=== PATIENT | female | born 1955 | race Caucasian/White ===

== ENCOUNTER 2024-03-07 06:57 | Outpatient (RCR) | payer MEDICARE, OTHER, SELFPAY | END 2024-03-07 13:40 | disposition home or self-care (01) | LOC: RPT 06:57 | PROVIDERS: ATTENDING PHYSICIAN Specialist; FAMILY PHYSICIAN Internal Medicine | DX: M75.41 Impingement syndrome of right shoulder (principal); M19.011 Primary osteoarthritis, right shoulder; Z73.6 Limitation of activities due to disability | CPT/HCPCS: 97110; 97112; 97162 ==

== ENCOUNTER → 2024-07-19 15:00 | Outpatient (REF) | payer MEDICARE, OTHER, SELFPAY | LOC: WDC 15:00 | PROVIDERS: ATTENDING PHYSICIAN Obstetrics & Gynecology Gynecology; FAMILY PHYSICIAN Internal Medicine | DX: Z12.31 Encounter for screening mammogram for malignant neoplasm of breast (principal) | CPT/HCPCS: 77063; 77067 ==

== ENCOUNTER → 2024-07-24 08:58 | Outpatient (REF) | payer MEDICARE, OTHER, SELFPAY | LOC: WDC 08:58 | PROVIDERS: ATTENDING PHYSICIAN Obstetrics & Gynecology Gynecology; FAMILY PHYSICIAN Internal Medicine | DX: R92.8 Other abnormal and inconclusive findings on diagnostic imaging of breast (principal) | CPT/HCPCS: 76642 ==

== ENCOUNTER → 2024-07-30 07:38 | Outpatient (REF) | payer MEDICARE, OTHER, SELFPAY ==
--- NOTE | 2024-07-30 09:23 | OID.BR.INTR ---
[facility] Breast Navigator - Initial
- -
Date of Contact: 07/30/24
Met with patient. Patient given written information on navigator services available at [facility]. Will follow up as needed per protocol.
== END ==
LOC: WDC 07:38
PROVIDERS: ATTENDING PHYSICIAN Obstetrics & Gynecology Gynecology; FAMILY PHYSICIAN Internal Medicine
DX: N63.11 Unspecified lump in the right breast, upper outer quadrant (principal)
CPT/HCPCS: 88305; 19081; 76098; 88341; 88342; 88360; A4648

== ENCOUNTER → 2024-08-28 08:57 | Outpatient (REF) | payer MEDICARE, OTHER, SELFPAY | LOC: WDC 08:57 | PROVIDERS: ATTENDING PHYSICIAN Surgery | DX: C50.411 Malignant neoplasm of upper-outer quadrant of right female breast (principal) | CPT/HCPCS: 38792; 76942; A9541 ==

== ENCOUNTER 2024-08-29 06:14 | Inpatient (IN) | payer MEDICARE, OTHER, SELFPAY ==
[2024-08-24 09:21] VITALS: BMI 25.1
[2024-08-24 11:06] LABS: Hematocrit 36.1 % (37.0-47.0); Hemoglobin 12.2 g/dL (12.0-16.0); Mean Corp Hgb Conc. 33.8 g/dL (33.0-37.0); Mean Corpuscular Hgb 30.6 pg (27.0-31.0); Mean Corpuscular Volume 90.5 fL (81.0-99.0); Mean Platelet Volume 10.7 fL (7.4-10.4); Platelet Count 246 10^3/uL (130-400); Red Blood Cell Count 3.99 10^6/uL (4.20-5.40); Red Cell Dist. Width 14.3 % (11.5-14.5); White Blood Cell Count 3.9 10^3/uL (4.8-10.8)
[2024-08-24 11:23] LABS: Absolute Neutrophils -Man Diff 1.5 10^3/uL (1.4-6.5); Atypical Lymphocytes 5 %; Band Neutrophils 1 % (0-3); Eosinophils 1 % (0-6); Lymphocytes 42 % (20-51); Monocytes 10 % (2-9); Normal RBC Morphology Yes; Platelets Checked Yes; Segmented Neutrophils 40 % (42-75)
[2024-08-24 11:24] LABS: Total Cells Counted 100
[2024-08-24 11:37] LABS: ALT (SGPT) 29 U/L (0-35); AST (SGOT) 26 U/L (14-36); Alkaline Phosphatase 76 U/L (38-126); Blood Urea Nitrogen 16 mg/dl (7-17); Calcium 9.5 mg/dl (8.4-10.2); Carbon Dioxide 28 mmol/L (22-30); Chloride 105 mmol/L (98-107); Estimated Creatinine Clearance 70 ml/min; Glucose 92 mg/dl (70-99); Potassium 4.3 mmol/L (3.5-5.1); Sodium 143 mmol/L (135-145); Total Bilirubin 0.3 mg/dl (0.2-1.3); Total Protein 6.6 g/dl (6.3-8.2); eGFR > 60.00
[2024-08-24 11:40] LABS: Prealbumin (Transthyretin) 21.2 mg/dl (17.6-36.0)
[2024-08-24 11:55] LABS: Vitamin D, 25-OH*** 60.7 ng/mL (30-80)
[2024-08-29] VITALS (25 sets, daily range): BP systolic 5–151; BP diastolic 49–111; BMI 25.1; BMI 25.2
[2024-08-29] MEDS: TYLENOL 1000 MG PO ×3 (06:40→17:47)
[2024-08-29] MEDS: LOVENOX 40 MG SC (06:40)
[2024-08-29] MEDS: NORMOSOL-R/PLASMALYTE-A 1000 IV (06:46)
--- NOTE | 2024-08-29 07:04 | PTCARENOTE ---
OK per anesthesia to start the IV in the L arm with history of Mastectomy and lymph node removal x 2. Will monitor patient.
--- NOTE | 2024-08-29 07:36 | W.SUR.PREOP ---
Pre-Operative Surgical Note
-
I have examined this patient prior to the performance of the scheduled procedure.
The patient's condition is unchanged from the time of the current History and
Physical and the patient is able to undergo the scheduled procedure.
--- NOTE | 2024-08-29 10:18 | W.IMMPOSTOP ---
Surgical Immed Post Op Note
-
Primary Surgeon: Mo
Assisting Surgeon: None
Pre-op Diagnosis: Right breast ca
Post-op Diagnosis: Same
Procedure Performed: Right mastectomy and sentinel lymph node mapping and biopsy
Anesthesia Type: GET
Specimen / Cultures: Right breast sentinel nodes
Estimated Blood Loss: 20cc
Complications: None
Operative Findings: Neg frozen section on lymph nodes
Garland Node Bx Breast Cancer
Garland Node Bx Breast Cancer
Operation performed with curative intent: Yes
Tracer(s) to ID Garland Nodes in Non-Neoadjuvant setting: Radioactive Tracer
Tracer(s) to ID Sentinal Nodes in the Neoadjuvant Setting: N/A
All nodes at end of dye-filled Lymphatic Channel removed: No
All Significantly Radioactive Nodes were removed: Yes
All Palpably Suspicious Nodes were Removed: Yes
Bx Proven Pos Nodes Marked Prior to Chemo ID'd & Removed: N/A
--- NOTE | 2024-08-29 11:00 | W.IMMPOSTOP ---
Surgical Immed Post Op Note
-
Primary Surgeon: MARTINE White MD
Assisting Surgeon:
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
Post-op Diagnosis: Same
Procedure Performed: Right immediate breast reconstruction with tissue farm butcher, insertion of ADM, left revision of reconstructed breast with removal and replacement of saline texture implant for smooth silicone gel implant
Anesthesia Type: GA
Specimen / Cultures: Per Dr. Hassan
Estimated Blood Loss: 30cc
Complications: None
Operative Findings: As expected, 12cm farm butcher filled to 100cc
--- NOTE | 2024-08-29 11:03 | OR.RPT ---
Operative Report
Operative Report
Date of surgery: 08/29/2024
Surgeon: MARTINE White MD
Preoperative diagnosis: Breast cancer, history of breast cancer, History of surgically acquired absence of left breast
Postoperative diagnosis: Same
Procedure:
1. Removal of left breast implant
2. Extensive capsulotomies and pocket adjustment of left breast
3. Insertion of silicone gel breast implant left breast
4. Immediate breast reconstruction after mastectomy with tissue parts professional, right breast
5. Insertion of ADM mesh right breast
Complications: None
Anesthesia: General
Implants: Left Sientra cohesive gel breast implant, documented in chart; right breast tissue parts professional
EBL: 30 cc
Indications for procedure: Patient is a 68-year-old female with a history of a left-sided breast cancer status post skin sparing mastectomy via horizontal approach. She is implant-based reconstruction and this is associated with contour abnormality
malposition. The implant has been in for some time and she desires removal and replacement. She is also recently diagnosed with a right sided breast cancer for which she will undergo a right mastectomy. She is interested in immediate
reconstruction with a tissue parts professional on the right with a staged insertion of silicone gel breast implant for symmetry at a later date. We reviewed the risks of the procedure at length include the risk of implants including BII, KIRTI ALCL, rupture,
capsular contracture, infection, rippling and wrinkling. She understood these risks and desired to proceed. Additional risk of hematoma, seroma, infection and for reconstructive failure were reviewed. Consents were signed accordingly
Procedure in detail: The patient was identified preoperatively and the surgical site was confirmed to be the bilateral breast. On the left the prior scar was marked for excision. On the right a horizontal or transverse skin sparing mastectomy was
planned out. All questions were answered and consents were confirmed. Patient was taken back to the operating room placed supine on table. Anesthesia was induced and an LMA was placed. Timeout for patient safety was performed to confirm that
preoperative antibiotics had been administered and bilateral SCDs were in place. Procedure began with Suad Hassan on the right breast performing the skin sparing mastectomy. Her operative report will be dictated separately. I began on the left
side where I performed the revisions to the left breast reconstruction. 1% lidocaine with epinephrine was injected into the prior scar and the scar was excised just transversely. An oblique capsulotomy was then performed and the implant was
removed. It was noted to be textured. The capsule itself was thin without irregularity or thickening. The pocket was then inspected and was found that the implant pocket was largely displaced inferior to the pectoralis muscle. As such extensive
capsulotomies were performed as well as submuscular dissection in order to restore the breast implant pocket to a more anatomical place. Meticulous hemostasis was ensured and then a gel sizer was placed to determine the final implant size. After
determining the size, the pocket was irrigated with double antibiotic solution followed by dilute Betadine and the Implant was placed and no touch technique using a Hill funnel. the wound was then closed in 3 layers using 2-0 Vicryl deep to
close the capsule followed 4-0 Monocryl and 5-0 nylon. Once Suad had finished the right mastectomy, I moved to the right side and ensured meticulous hemostasis the pocket. It was determined that a partial submuscular parts professional reconstruction
would be performed. As such the pectoralis muscle was elevated off the chest wall using Bovie electrocautery. A mesh construct was then devised using core TIVA ADM to provide an inferolateral sling. Tissue parts professional was measured based on the base
width and this was opened and irrigated with antibiotic solution. The parts professional was partially inflated and inserted into the submuscular position and sutured to the chest wall. The mesh was also inset using 2-0 Vicryl's. The pectoralis muscle was
then advanced over the construct using a series of 0 and 2-0 Vicryl's. 2 drains were placed in the right breast and tunneled and's along subcutaneous tunnel. Pectoralis muscle blocks with Marcaine were performed prior to elevation. The wound was
then closed in layers using 3-0 and 4-0 Monocryl.
Patient tolerated the procedure well was performed out complication, all counts were correct at the end the case. She was extubated taken the PACU for further care.
[2024-08-29] MEDS: DILAUDID 0.25 MG IV (11:46)
[2024-08-29] MEDS: ANCEF 5 IV (16:59)
--- NOTE | 2024-08-29 17:30 | PTCARENOTE ---
Patient admitted from PACU. VSS. Patient sating 96% on RA. Patient had one episode of N/V. No further c/o. Patient oriented to floor. Call blunt at bedside.
[2024-08-29] MEDS: NEURONTIN 100 MG PO ×2 (17:47→21:59)
[2024-08-30] MEDS: TYLENOL 1000 MG PO ×2 (00:41→06:26)
[2024-08-30] MEDS: ANCEF 5 IV ×2 (00:41→08:02)
[2024-08-30 03:33] VITALS: BP 96/49
[2024-08-30 04:30] VITALS: BP 105/53
[2024-08-30 07:29] LABS: Hematocrit 30.7 % (37.0-47.0); Hemoglobin 10.6 g/dL (12.0-16.0)
[2024-08-30 07:40] VITALS: BP 103/68
[2024-08-30 07:51] LABS: Blood Urea Nitrogen 13 mg/dl (7-17); Calcium 8.5 mg/dl (8.4-10.2); Carbon Dioxide 26 mmol/L (22-30); Chloride 107 mmol/L (98-107); Estimated Creatinine Clearance 70 ml/min; Glucose 92 mg/dl (70-99); Potassium 4.1 mmol/L (3.5-5.1); Sodium 142 mmol/L (135-145); eGFR > 60.00
[2024-08-30] MEDS: NEURONTIN 100 MG PO (08:02)
--- NOTE | 2024-08-30 08:59 | W.PN.PLAS ---
Today's Communication
-
Doing well, pain well-controlled, appropriate for discharge
Progress Note
Subjective Data
Doing well, pain well-controlled
Subjective: Tolerating Regular Diet, Ambulatory, Alberto Removed and Patient Voided
Objective Data
Vital Signs
Temp Pulse Resp BP Pulse Ox
98.3 F 67 16 103/68 98
08/30/24 07:40 08/30/24 07:40 08/30/24 07:40 08/30/24 07:40 08/30/24 07:40
Intake and Output
08/29/24 08/30/24 08/31/24
06:59 06:59 06:59
Intake Total 1140 / 1140
Output Total 260 / 260
Balance 880 / 880
Intake:
Oral fluids 990 / 990
IV fluids (Total) 150 / 150
Normosol 150 / 150
Output:
Drain Output (Total) 260 / 260
Right Breast Garland-Elias A 125 / 125
Right Breast Garland-Elias B 135 / 135
Other:
Number of approximated MODERATE 3
amounts of urine
Number of immeasurable emeses? 1
Physical exam:
No acute distress
No increased work of breathing
No undrained fluid collections looks
Drains serosanguineous with appropriate output
Dressings intact
Lab Results
08/30/24 06:01
08/30/24 06:01
Assessment / Plan
Status post left breast revisions and right breast mastectomy with immediate reconstruction with tissue carding machine feeder
Doing well
Discharge today with VN
--- NOTE | 2024-08-30 08:59 | W.DCSUMMARY ---
Discharge Summary
Discharge Data
Date of Admission: 08/29/24
Date of Discharge: 08/30/24
-
Pending Results: No
Hospital Course
Admitted following mastectomy and breast reconstruction revisions
Routine postop course
discharged POD 1 on po meds, able to ambulate, tolerating regular diet
Discharge Plan
-
Patient Disposition: Home (Routine Discharge)
Discharge Diagnosis/Procedures: s/p R mastectomy and yard cleaner recon, L breast revisions
Diet: Regular
Activity: No strenuous activity
Additional Activity: No heavy lifting >10 lbs
Driving Restrictions: Not until seen by your Dr
Bathing Restrictions: OK to Shower
Other Services: VN
Wound Care: Strip and record drain output twice daily, compression bra
Referrals:
Eliza Clark MD [Family Provider] -
Prescriptions:
New
acetaminophen [Tylenol Extra Strength] 500 mg Tablet
1,000 mg PO Q6 30 Days Qty: 240 0RF
gabapentin 100 mg Capsule
100 mg PO TID 30 Days Qty: 90 3RF
tramadol 50 mg Tablet
50 mg PO Q6HPRN PRN (Reason: pain) 7 Days Qty: 15 0RF
diazepam 5 mg Tablet
5 mg PO TIDPRN PRN (Reason: Muscle Spasms) 14 Days Qty: 42 0RF
cefadroxil 500 mg capsule
500 mg PO BID Qty: 42 0RF
Continued
folic acid 1 mg Tablet
2 mg PO DAILY
Simponi ARIA 12.5 mg/mL Solution
100 mg IV Q8W
Rx Instructions:
dosing changed, calculated by weight
multivitamin Tablet
1 tab PO DAILY
glucosamine-chondroitin [Osteo Bi-Flex] 250-200 mg Tablet
2 tab PO DAILY
Held
methotrexate sodium 2.5 mg Tablet
7 mg PO QWEEK
Hold Instructions: Resume on 09/03/24.
Discharge Orders:
Discharge Patient (As Directed); Ordered 08/30/24
Ordered By: Bob White
Discharge Date and Time
Print Language: ALBANIAN
--- NOTE | 2024-08-30 10:36 | CM ---
Reviewed the chart notes and spoke with the patient at the bedside. IMM reviewed. The patient resides with her spouse in a one story home with one step to enter. The patient reports no DME/SNF in the past, but has had VN 25 years ago, agency name
unknown. [facility] [place] received and patient selected VN. Referral forwarded in [facility] Port. The patient's spouse will be transporting the patient home today.
continues to be available to patient/family and is monitoring medical plan for needs at discharge.
Plan: Discharge to home today with VN services.
== END 2024-08-30 11:33 | disposition home health service (06) | DRG 581 ==
LOC: 2 NORTH 06:14
PROVIDERS: Surgery; ADMITTING PHYSICIAN Surgery Plastic and Reconstructive Surgery; FAMILY PHYSICIAN Internal Medicine
PROC: 0HHT0NZ Insertion of Tissue Expander into Right Breast, Open Approach (ICD-10-PCS; 2024-08-29)
PROC: 0HPU0JZ Removal of Synthetic Substitute from Left Breast, Open Approach (ICD-10-PCS; 2024-08-29)
PROC: 0HTT0ZZ Resection of Right Breast, Open Approach (ICD-10-PCS; 2024-08-29)
PROC: 0HRU0JZ Replacement of Left Breast with Synthetic Substitute, Open Approach (ICD-10-PCS; 2024-08-29)
PROC: 07B50ZX Excision of Right Axillary Lymphatic, Open Approach, Diagnostic (ICD-10-PCS; 2024-08-29)
PROC: 4A1 Measurement and Monitoring, Physiological Systems, Monitoring (ICD-10-PCS; 2024-08-29)
DX: C50.411 Malignant neoplasm of upper-outer quadrant of right female breast (principal); E20.9 Hypoparathyroidism, unspecified; D63.0 Anemia in neoplastic disease; K21.9 Gastro-esophageal reflux disease without esophagitis; M81.0 Age-related osteoporosis without current pathological fracture; M06.9 Rheumatoid arthritis, unspecified; Z45.812 Encounter for adjustment or removal of left breast implant; Z80.3 Family history of malignant neoplasm of breast; Z90.12 Acquired absence of left breast and nipple; Z17.0 Estrogen receptor positive status [ER+]; Z85.42 Personal history of malignant neoplasm of other parts of uterus; Z90.710 Acquired absence of both cervix and uterus; Z90.722 Acquired absence of ovaries, bilateral; Z79.899 Other long term (current) drug therapy
CPT/HCPCS: 88307; 88332; 36415; 38792; 76942; 80048; 80053; 82306; 84134; 85014; 85018; 85025; 88331; 88341; 88342; 88360; 93005; A9541; C1789; L8000; Q4100

== ENCOUNTER → 2024-10-30 08:29 | Outpatient (REF) | payer MEDICARE, OTHER, SELFPAY | LOC: HWRAD 08:29 | PROVIDERS: ATTENDING PHYSICIAN Obstetrics & Gynecology Gynecology; FAMILY PHYSICIAN Internal Medicine | DX: Z78.0 Asymptomatic menopausal state (principal) | CPT/HCPCS: 77080 ==

== ENCOUNTER → 2025-04-23 10:49 | Outpatient (REF) | payer MEDICARE, OTHER, SELFPAY | LOC: HWRAD 10:49 | PROVIDERS: ATTENDING PHYSICIAN Internal Medicine Cardiovascular Disease; FAMILY PHYSICIAN Internal Medicine | DX: C50.911 Malignant neoplasm of unspecified site of right female breast (principal); Z92.3 Personal history of irradiation; Z13.220 Encounter for screening for lipoid disorders | CPT/HCPCS: 75571 ==

== ENCOUNTER → 2025-05-10 13:48 | Outpatient (REF) | payer MEDICARE, OTHER, SELFPAY | LOC: RCS 13:48 | PROVIDERS: ATTENDING PHYSICIAN Internal Medicine Cardiovascular Disease; FAMILY PHYSICIAN Internal Medicine | DX: C50.911 Malignant neoplasm of unspecified site of right female breast (principal); Z92.3 Personal history of irradiation | CPT/HCPCS: 93306; 93356 ==